=== PATIENT | male | born 1950 | race Caucasian/White ===

== ENCOUNTER 2025-01-10 06:18 | Inpatient (IN) ==
[2025-01-10] MEDS ORDERED: IOPAMIDOL 100 ML BOTTLE IV ONE (06:19)
[2025-01-10] MEDS: fentaNYL 100 MCG/2 ML VIAL IV PRN (07:17)
[2025-01-10 07:49] LABS: C-Reactive Protein 2.23 mg/dL (0.03-0.80)
[2025-01-10 08:05] LABS: Basophils # (Auto) 0.03 K/mcL (0.00-0.30); Basophils % (Auto) 0.6 % (0.0-2.0); Eosinophils # (Auto) 0.11 K/mcL (0.00-0.70); Eosinophils % (Auto) 2.0 % (0.0-7.0); Hematocrit 40.4 % (40.1-51.0); Hemoglobin 13.4 g/dL (13.7-17.5); Lymphocytes # (Auto) 0.83 K/mcL (1.50-4.80); Lymphocytes % (Auto) 15.4 % (15.5-49.0); Mean Corpuscular HGB Conc 33.2 g/dL (31.0-36.0); Monocytes # (Auto) 1.25 K/mcL (0.10-0.90); Monocytes % (Auto) 23.1 % (1.0-12.0); Neutrophils % (Auto) 58.5 % (38.0-78.0); Platelet Count 253 K/mcL (140-440); RBC 4.40 M/mcL (4.63-6.08); WBC 5.4 K/mcL (4.5-11.0)
[2025-01-10 08:20] LABS: ALT/SGPT 30 U/L (<40); AST/SGOT 25 U/L (<40); Albumin 3.7 gm/dL (3.2-5.2); Albumin/Globulin Ratio 1.6 (1.0-2.3); Alkaline Phosphatase 62 U/L (39-117); Anion Gap 8.0 (8.0-16.0); Bilirubin,Total 0.4 mg/dL (0.1-1.0); Blood Urea Nitrogen 11 mg/dL (8-23); Calcium 8.4 mg/dL (8.6-10.4); Carbon Dioxide 27 mmol/L (22-30); Chloride 105 mmol/L (96-108); Globulin 2.3 gm/dL (2.2-3.7); Glucose 101 mg/dL (70-105); Potassium 4.2 mmol/L (3.3-5.1); Sodium 140 mmol/L (133-145)
[2025-01-10 08:50] LABS: Bilirubin,Urine NEGATIVE (Negative); Color,Urine YELLOW; Glucose,Urine (UA) NEGATIVE (Negative); Ketones,Urine NEGATIVE (Negative); Leukocyte Esterase,Urine NEGATIVE /uL (Negative); Mucus,Urine Few /hpf; PH,Urine 7.0 (5.0-9.0); Protein,Urine NEGATIVE (Negative); Specific Gravity,Urine 1.010 (1.000-1.035); Urobilinogen,Urine 1.0 mg/dL
[2025-01-10] MEDS: HYDROmorphone 0.5 MG/0.5 ML SYRINGE IV ONE (09:19)
[2025-01-10] MEDS: PIPERACILLIN SODIUM/TAZOBACTAM 4.5 GM in DEXTROSE 5% IN WATER 50 ML IV ONE (09:20)
[2025-01-10] MEDS: 0.9 % SODIUM CHLORIDE 1,000 ML IV SCH (11:53)
[2025-01-10] MEDS ORDERED: fentaNYL 100 MCG/2 ML VIAL ONE (13:59)
[2025-01-10] MEDS ORDERED: PROPOFOL 200 MG/20 ML VIAL IV ONE (13:59)
[2025-01-10] MEDS ORDERED: GLYCOPYRROLATE 0.2 MG/ML VIAL IV ONE (14:00)
[2025-01-10] MEDS ORDERED: MAGNESIUM SULFATE 2 GM/50 ML BAG IV ONE (14:00)
[2025-01-10] MEDS ORDERED: DEXAMETHASONE 10 MG/ML VIAL ONE (14:00)
[2025-01-10] MEDS ORDERED: LIDOCAINE 2% PF 5 ML VIAL ONE (14:00)
[2025-01-10] MEDS ORDERED: ONDANSETRON 4 MG/2 ML VIAL ONE (14:00)
[2025-01-10] MEDS ORDERED: NALOXONE HCL 0.4 MG/ML VIAL IV PRN (14:44)
[2025-01-10] MEDS ORDERED: IPRATROPIUM/ALBUTEROL 3 ML AMPUL.NEB NEB PRN (14:44)
[2025-01-10] MEDS ORDERED: diphenhydrAMINE 50 MG/ML VIAL IV PRN (14:44)
[2025-01-10] MEDS ORDERED: fentaNYL 100 MCG/2 ML VIAL IV PRN (14:44)
[2025-01-10] MEDS ORDERED: ONDANSETRON 4 MG/2 ML VIAL IV PRN (14:44)
[2025-01-10] MEDS ORDERED: MEPERIDINE 25 MG/ML VIAL IV PRN (14:44)
[2025-01-10] MEDS: ACETAMINOPHEN 1,000 MG/100 ML BAG IV ONE (15:00)
[2025-01-10] MEDS: PIPERACILLIN SODIUM/TAZOBACTAM 4.5 GM in DEXTROSE 5% IN WATER 100 ML IV SCH (16:16)
[2025-01-11] MEDS: TAMSULOSIN 0.4 MG CAPSULE PO SCH (08:49)
[2025-01-11] MEDS: POLYETHYLENE GLYCOL 3350 17 GM PACKET PO SCH (13:24)
[2025-01-12 06:21] LABS: ALT/SGPT 32 U/L (<40); AST/SGOT 31 U/L (<40); Albumin 4.2 gm/dL (3.2-5.2); Albumin/Globulin Ratio 1.6 (1.0-2.3); Alkaline Phosphatase 64 U/L (39-117); Anion Gap 12.0 (8.0-16.0); Bilirubin,Direct 0.3 mg/dL (<0.3); Bilirubin,Total 0.6 mg/dL (0.1-1.0); Blood Urea Nitrogen 8 mg/dL (8-23); Calcium 8.9 mg/dL (8.6-10.4); Carbon Dioxide 25 mmol/L (22-30); Chloride 102 mmol/L (96-108); Globulin 2.7 gm/dL (2.2-3.7); Glucose 99 mg/dL (70-105); Phosphorous 3.0 mg/dL (2.5-4.5); Potassium 3.9 mmol/L (3.3-5.1); Sodium 139 mmol/L (133-145); Triglycerides 122 mg/dL (<150); Uric Acid 3.3 mg/dL (2.5-8.0)
[2025-01-12 07:17] LABS: Basophils # (Auto) 0.04 K/mcL (0.00-0.30); Basophils % (Auto) 0.6 % (0.0-2.0); Eosinophils # (Auto) 0.24 K/mcL (0.00-0.70); Eosinophils % (Auto) 3.8 % (0.0-7.0); Hematocrit 45.6 % (40.1-51.0); Hemoglobin 14.7 g/dL (13.7-17.5); Lymphocytes # (Auto) 1.62 K/mcL (1.50-4.80); Lymphocytes % (Auto) 25.4 % (15.5-49.0); Mean Corpuscular HGB Conc 32.2 g/dL (31.0-36.0); Monocytes # (Auto) 0.92 K/mcL (0.10-0.90); Monocytes % (Auto) 14.4 % (1.0-12.0); Neutrophils % (Auto) 55.5 % (38.0-78.0); Platelet Count 368 K/mcL (140-440); RBC 4.88 M/mcL (4.63-6.08); WBC 6.4 K/mcL (4.5-11.0)
[2025-01-13 06:34] LABS: ALT/SGPT 26 U/L (<40); AST/SGOT 24 U/L (<40); Albumin 3.7 gm/dL (3.2-5.2); Albumin/Globulin Ratio 1.5 (1.0-2.3); Alkaline Phosphatase 53 U/L (39-117); Anion Gap 9.0 (8.0-16.0); Bilirubin,Direct 0.2 mg/dL (<0.3); Bilirubin,Total 0.5 mg/dL (0.1-1.0); Blood Urea Nitrogen 7 mg/dL (8-23); Calcium 9.1 mg/dL (8.6-10.4); Carbon Dioxide 27 mmol/L (22-30); Chloride 104 mmol/L (96-108); Globulin 2.4 gm/dL (2.2-3.7); Glucose 102 mg/dL (70-105); Phosphorous 3.4 mg/dL (2.5-4.5); Potassium 4.2 mmol/L (3.3-5.1); Sodium 140 mmol/L (133-145); Triglycerides 134 mg/dL (<150); Uric Acid 2.9 mg/dL (2.5-8.0)
[2025-01-13 06:35] LABS: Basophils # (Auto) 0.03 K/mcL (0.00-0.30); Basophils % (Auto) 0.7 % (0.0-2.0); Eosinophils # (Auto) 0.25 K/mcL (0.00-0.70); Eosinophils % (Auto) 5.5 % (0.0-7.0); Hematocrit 43.3 % (40.1-51.0); Hemoglobin 14.0 g/dL (13.7-17.5); Lymphocytes # (Auto) 1.14 K/mcL (1.50-4.80); Lymphocytes % (Auto) 25.0 % (15.5-49.0); Mean Corpuscular HGB Conc 32.3 g/dL (31.0-36.0); Monocytes # (Auto) 0.75 K/mcL (0.10-0.90); Monocytes % (Auto) 16.4 % (1.0-12.0); Neutrophils % (Auto) 51.7 % (38.0-78.0); Platelet Count 355 K/mcL (140-440); RBC 4.58 M/mcL (4.63-6.08); WBC 4.6 K/mcL (4.5-11.0)
[2025-01-14 06:45] VITALS: O2SAT 97
[2025-01-14 06:52] LABS: ALT/SGPT 27 U/L (<40); AST/SGOT 23 U/L (<40); Albumin 3.7 gm/dL (3.2-5.2); Albumin/Globulin Ratio 1.5 (1.0-2.3); Alkaline Phosphatase 50 U/L (39-117); Anion Gap 9.0 (8.0-16.0); Bilirubin,Direct 0.2 mg/dL (<0.3); Bilirubin,Total 0.5 mg/dL (0.1-1.0); Blood Urea Nitrogen 9 mg/dL (8-23); Calcium 8.7 mg/dL (8.6-10.4); Carbon Dioxide 24 mmol/L (22-30); Chloride 104 mmol/L (96-108); Globulin 2.4 gm/dL (2.2-3.7); Glucose 103 mg/dL (70-105); Phosphorous 3.1 mg/dL (2.5-4.5); Potassium 4.0 mmol/L (3.3-5.1); Sodium 137 mmol/L (133-145); Triglycerides 126 mg/dL (<150); Uric Acid 2.5 mg/dL (2.5-8.0)
[2025-01-14 07:29] LABS: Basophils # (Auto) 0.04 K/mcL (0.00-0.30); Basophils % (Auto) 0.9 % (0.0-2.0); Eosinophils # (Auto) 0.19 K/mcL (0.00-0.70); Eosinophils % (Auto) 4.4 % (0.0-7.0); Hematocrit 42.0 % (40.1-51.0); Hemoglobin 13.9 g/dL (13.7-17.5); Lymphocytes # (Auto) 1.17 K/mcL (1.50-4.80); Lymphocytes % (Auto) 27.0 % (15.5-49.0); Mean Corpuscular HGB Conc 33.1 g/dL (31.0-36.0); Monocytes # (Auto) 0.68 K/mcL (0.10-0.90); Monocytes % (Auto) 15.7 % (1.0-12.0); Neutrophils % (Auto) 51.3 % (38.0-78.0); Platelet Count 367 K/mcL (140-440); RBC 4.52 M/mcL (4.63-6.08); WBC 4.3 K/mcL (4.5-11.0)
[2025-01-14 12:25] VITALS: TEMP 98.6
== END 2025-01-14 15:55 | disposition home or self-care (01) | DRG 345 ==
LOC: ED 06:18 → MEDSUR 06:18
PROVIDERS: ADMIT Family Medicine Adult Medicine; ATTEND Family Medicine Adult Medicine